=== PATIENT | female | born 1940 | race Caucasian/White ===

== ENCOUNTER 2018-04-01 14:32 | Emergency (ER) | payer MEDICARE, BC ==
[~2018-04-01] VITALS: Ht 157.5 cm; Wt 97.1 kg
--- NOTE | 2018-04-01 14:51 | NUR ---
[facility] FAMILY: LEFT WRIST PAIN S/P TRIP AND FALL. SKIN IS WARM TO TOUCH AND NON DIAPHORETIC.PATIENT IS AFEBRILE. VSS
--- NOTE | 2018-04-01 14:52 | NUR ---
NO KO REPORTED
[2018-04-01] MEDS ORDERED: HYDROCODONE/APAP 5/325MG 1 EACH TABLET ONE (15:56)
[2018-04-01] MEDS ORDERED: HYDROCODONE/APAP 5/325MG 1 EACH TABLET PO ONE (16:00)
[2018-04-01 16:26] VITALS: BP 142/70
--- NOTE | 2018-04-01 16:27 | NUR ---
Patient discharged to home in stable condition. Written and verbal after care instructions given. Patient verbalizes understanding of instruction.
== END 2018-04-01 16:29 | disposition home or self-care (01) ==
LOC: ER 14:35
DX: S52.692A Other fracture of lower end of left ulna, initial encounter for closed fracture (principal); S52.592A Other fractures of lower end of left radius, initial encounter for closed fracture; Z79.01 Long term (current) use of anticoagulants; W01.0XXA Fall on same level from slipping, tripping and stumbling without subsequent striking against object, initial encounter; Y93.89 Activity, other specified; Y92.89 Other specified places as the place of occurrence of the external cause; Y99.8 Other external cause status
CPT/HCPCS: 73110; A4606; Z7610